=== PATIENT | female | born 1950 | race Caucasian/White ===

== ENCOUNTER 2019-01-16 11:20 | Day surgery (SDC) | payer MEDICARE, OTHER ==
[2019-01-15 14:00] LABS: HEMATOCRIT 36.6 % (36.0-48.0); HEMOGLOBIN 12.7 g/dL (12-16); MCH 30.9 pg (26.0-34.0); MCHC 34.7 g/dL (31.0-37.0); MCV 89.1 fL (80.0-100.0); MEAN PLATELET VOLUME 8.9 fL (7.4-10.4); RBC 4.11 10x6/uL (4.00-5.40); RDW 12.8 % (11.5-14.5)
[2019-01-15 14:07] LABS: ANION GAP 11.4 mmol/L (8-16); CALCIUM 9.2 mg/dL (8.5-10.1); CARBON DIOXIDE 29.2 mmol/L (21.0-32.0); POTASSIUM - SERUM 3.6 mmol/L (3.5-5.1)
[~2019-01-16] VITALS: Ht 167.6 cm; Wt 74.8 kg
[~2019-01-16 11:20] MED LIST: CENTRUM SILVER1 EAC3 PO; CITRACAL + D E1 EACH PO; COZAAR100 MG PO; FENOFIBRATE54 MG PO; FLUTICASONE PRO16 GM NASAL; FOLBEE PLUS TAB1 TAB PO; GLUCOPHAGE500 MG PO; HCTZ25 MG PO; OMEPRAZOLE CAP 20M PO
[2019-01-16 13:42] VITALS: Ht 167.6 cm; Wt 74.8 kg
[2019-01-16] MEDS ORDERED: PHENERGAN25 M1 PO (17:16)
[2019-01-16] MEDS ORDERED: HYDROCODON-ACE1 EAC7 PO (17:16)
--- NOTE | 2019-01-16 17:50 | NUR ---
PATIENT AMBULATES AROUND ROOM WITH CRUTCHES, MINIMIZING WEIGHT BEARING ON RLE DUE TO NUMBNESS FROM PERIPHERAL NERVE BLOCK. PATIENT USES CRUTCHES WITHOUT UNSTEADINESS WITH STAND-BY ASSIST. AMBULATES TO BATHROOM AND VOIDS IN TOILET WITHOUT DIFFICULTY. PIV DC'D WITH TIP INTACT. PATIENT DRESSING IN PERSONAL CLOTHING
--- NOTE | 2019-01-16 18:00 | NUR ---
DISCHARGE INSTRUCTIONS REVIEWED WITH PATIENT AND SPOUSE. DISCHARGED HOME VIA WHEELCHAIR TO PRIVATE VEHICLE WITH SPOUSE
--- NOTE | 2019-01-28 12:26 | OP ---
PATIENT NAME: XOCHITL TY MEDICAL RECORD: [id number] :48 LOCATION:D.OPS ADMISSION DATE: SURGEON: ELOISE GONSALES DATE OF OPERATION: 01/16/2019 SURGEON: Eloise Gonsales DPM PREOPERATIVE DIAGNOSES: 1. Hallux abductovalgus deformity, right foot. 2. Tailor's bunion, right foot. 3. Hammertoe, fifth toe, right foot. POSTOPERATIVE DIAGNOSES: 1. Hallux abductovalgus deformity, right foot. 2. Tailor's bunion, right foot. 3. Hammertoe, fifth toe, right foot. PROCEDURES: 1. Ryan osteotomy. 2. Arthroplasty, fifth toe, right foot. 3. Reverse Gm bunionectomy, right foot. ANESTHESIA: Local with monitored anesthesia care. HEMOSTASIS: Pneumatic ankle tourniquet inflated to 250 mmHg. ESTIMATED BLOOD LOSS: Minimal. MATERIALS: 3-0 Vicryl, 4-0 Vicryl, and 4-0 nylon. INJECTABLES: 12 cc of 0.5% bupivacaine plain. INDICATIONS: The patient has long-standing history of pain associated with the above-mentioned deformities. She is here today for surgical correction. We again reviewed the risks and benefits of the procedures. Complications were discussed. All questions were answered. She was appropriately consented for the above-mentioned procedures. DESCRIPTION OF PROCEDURE: The patient was brought in the operating room and placed on the operating table in supine position. A time-out was called with Dr. Gonsales, who identified the patient, the surgical site, and the surgery to be performed. Once appropriate anesthesia was obtained, the foot was prepped and draped in the usual aseptic manner. The pneumatic ankle tourniquet was inflated to 250 mmHg on the well-padded right ankle. PROCEDURE #1: Ryan osteotomy. Attention was directed to the first metatarsophalangeal joint area, where a 4-cm linear incision was made just medial to the extensor hallucis longus tendon. This incision was carried deep to soft tissue with care being taken to retract all vital neurovascular structures. All bleeders were cauterized along the way. The periosteum was then reflected from the head of the first metatarsal and the base of the proximal phalanx, thus exposing the first metatarsophalangeal joint. OPERATIVE REPORT [id number] MELONY,XOCHITL AMBER Next, utilizing a sagittal saw, the hypertrophied medial eminence of the first metatarsal was resected. Attention was then directed to the base of the proximal phalanx, where a V-shaped osteotomy was created in the base of the toe. The apex of the osteotomy was oriented laterally. The wedge of bone was removed. The osteotomy was reduced and fixation was obtained utilizing preschool teacher aide's recommended technique with one 2.5 x 22-mm headless Dart-Fire screw. Excellent fixation was noted after placement of the screw. The surgical site was then irrigated with copious amounts of normal sterile saline via bulb syringe. The periosteum was reapproximated and coapted using 3-0 Vicryl. The subcutaneous was reapproximated and coapted using 4-0 Vicryl. The skin was reapproximated and coapted using 4-0 nylon. PROCEDURE #2: Reverse Gm bunionectomy. Attention was directed to the fifth metatarsophalangeal joint area, where a 5-cm linear incision was made. This incision was carried deep to soft tissue with care being taken to retract all vital neurovascular structures. All bleeders were cauterized along the way. The periosteum was then reflected from the head of the fifth metatarsal, thus exposing the hypertrophied lateral eminence. Utilizing a sagittal saw, the hypertrophied lateral eminence was resected. Next, utilizing a sagittal saw, a V-shaped osteotomy was created in the head of the fifth metatarsal. This was a bxhqxxu-yon-fqgoclu osteotomy with the apex oriented distally. The capital fragment was translocated medially and impacted upon the fifth metatarsal shaft. Next, utilizing preschool teacher aide's recommended technique, one 2.0 x 10-mm headed Dart-Fire screw was placed across the osteotomy. Excellent fixation was noted after placement of the screw. All remaining overhanging bone from the lateral aspect of the fifth metatarsal was resected with a bone saw. Attention was directed to the fifth toe of the right foot, where the incision for procedure #2 was extended onto the toe. The incision was carried to the level of the proximal interphalangeal joint. At the level of the proximal interphalangeal joint, the extensor tendon was transected from medial to lateral. All soft tissue structures were then freed from the head of the proximal phalanx, thus exposing the aspect of the bone. Next, utilizing a single action bone cutter, the head of the proximal phalanx was resected. The surgical site was then irrigated with copious amounts of normal sterile saline via bulb syringe. The extensor tendon was then reapproximated and coapted using 3-0 Vicryl. The subq for procedures #2 and #3 was then reapproximated and coapted using 3-0 Vicryl. The subq was then reapproximated and coapted using 4-0 Vicryl. The skin was reapproximated and coapted using 4-0 nylon. A dressing consisting of Xeroform, 4 x 4's, Kerlix, and Coban was applied to the right foot. The pneumatic ankle tourniquet was deflated and capillary refill time was immediate to all digits of the right foot. The patient tolerated the procedure and the anesthesia well. She left the OPERATIVE REPORT [id number] XOCHITL TY operating room with vital signs stable and capillary refill time intact. The patient was discharged home with instructions to ice and elevate the right foot. She was dispensed a boot to help further offload the foot. She will follow up with me next week. She was dispensed my phone number for any afterhours difficulties. There were no complications with this procedure. TRANSINT:[id number] Voice Confirmation ID: [id number] DOCUMENT ID: [id number] ELOISE GONSALES at 1226 CC: [id number] DICTATION DATE: 01/16/19 165 [facility] ROLLER: 01/16/191909 [facility] 01/16/19 [facility] [address] [place] [address]
== END 2019-01-16 18:00 | disposition home or self-care (01) ==
LOC: D.OPS 11:20 → D.PAN 14:30 → D.OPS 18:00
PROVIDERS: Anesthesiology; ATTEND Podiatrist
DX: M20.11 Hallux valgus (acquired), right foot (principal); M21.621 Bunionette of right foot; M20.41 Other hammer toe(s) (acquired), right foot; Z01.812 Encounter for preprocedural laboratory examination